=== PATIENT | male | born 1975 | race Caucasian/White ===

== ENCOUNTER 2016-11-02 03:04 | Inpatient (IN) | payer BC, OTHER ==
[2016-11-02] VITALS (8 sets, daily range): BP systolic 114–150; BP diastolic 69–92; PULSE 78–92; TEMP 36.4–37.2; O2SAT 96–98; Ht 182.9 cm; Wt 119.5 kg
[~2016-11-02] VITALS: Ht 182.9 cm; Wt 119.5 kg
[2016-11-02] MEDS ORDERED: GI COCKTAIL PO STA (03:17)
[2016-11-02] MEDS ORDERED: ASPIRIN 324 MG CHEW PO STA (03:17)
[2016-11-02] MEDS ORDERED: ALUMINUM/MAGNESIUM SUSP 30 ML UDC ONE (03:30)
[2016-11-02] MEDS ORDERED: NITROGLYCERIN 0.4 MG SL PER TAB CHARGE SL PRN ×2 (03:30→05:15)
[2016-11-02] MEDS ORDERED: LIDOCAINE HCL 2% VISC SOLN 20 ML UDC ONE (03:30)
--- NOTE | 2016-11-02 03:32 | EMERGENCY ROOM VISIT NOTE ---
History Report prepared by Rik: Kyle Fermin Under the Supervision of: Dr. David Dennis M.D. First contact with patient: 03:08 Chief Complaint: CHEST PAIN Stated Complaint: CHEST PAINS History of Present Illness The patient is a 41 year old male who presents to the Emergency Room with complaints of that started a couple of months ago. He rates his pain as a 4/10 in severity. The patient describes his pain as a stabbing sensation or a pressure. He admits that during his chest pain episodes, he typically experiences shortness of breath. The patient states that the last couple of nights, he has been experiencing heartburn, which he denies ever experiencing in the past. He states that the chest pain returned tonight around 0100 after he woke up. The patient states that he checked his blood pressure following the chest pain, which showed 134/88. He admits that his mother and father had a heart attack four years ago, but denies any sibling heart problem history. The patient admits that his mother also had a history of strokes. 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 The patient admits that he has been under a lot of stress recently. He states that he had testing done on his heart when he was 39, but denies a stress test. The patient denies telling his doctor about his chest pains. He denies medication, nausea, vomiting , LOC, heart palpitations, symptoms worsening with movement, lower extremity edema, a history of blood clots, smoking, drinking, trauma, and injuries. Source of History: patient Onset: a couple of months ago Position: chest Symptom Intensity: 4/10 Quality: pressure, stabbing Timing: intermittent Associated Symptoms: + SOB, No LOC, No nausea, No vomiting Review of Systems See HPI for pertinent positives & negatives. A total of 10 systems reviewed and were otherwise negative. Past Medical & Surgical Medical Problems: (1) Hypertension Surgical Problems: (1) History of ear surgery (2) Hx of appendectomy Family History Diabetes mellitus FH: stroke FHx: cancer FHx: heart disease Hypertension Kidney disease Kidney stones Social History Smoking Status: Never Smoker Smokeless Tobacco Use: No Alcohol Use: occasionally Drug Use: none Marital Status: Housing Status: lives with significant other Occupation Status: employed Current/Historical Medications Scheduled Valsartan/Hctz (Diovan Hct 160MG/25MG), 1 TAB PO DAILY Allergies Coded Allergies: No Known Allergies (Verified , 05/02/02) Physical Exam Vital Signs Date Time Temp Pulse Resp B/P (MAP) Pulse Ox O2 Delivery O2 Flow Rate FiO2 11/02/16 04:35 77 14 96 11/02/16 04:30 129/73 11/02/16 04:05 73 13 96 11/02/16 04:00 125/69 11/02/16 03:52 86 21 95 11/02/16 03:50 82 15 125/74 95 Room Air 11/02/16 03:32 76 15 114/80 96 Room Air 11/02/16 03:15 96 Room Air 11/02/16 03:14 88 11/02/16 03:14 96 Room Air 11/02/16 03:09 37.0 93 18 149/99 95 Room Air Physical Exam GENERAL: Anxious appearing in little distress. HEENT: No acute trauma, normocephalic atraumatic, mucous membranes moist, no nasal congestion, no scleral icterus. NECK: No stridor, no adenopathy, no meningismus, trachea is midline. LUNGS: No dyspnea. Clear to auscultation and equal bilaterally. No wheeze, no rhonchi. HEART: Regular rate and rhythm. No murmurs, rubs, gallops appreciated. ABDOMEN: Soft, nontender, bowel sounds positive, no masses appreciated, no peritonitis. BACK: No midline tenderness, no CVA tenderness EXTREMITIES: Normal motion all extremities, no cyanosis, no edema. NEUROLOGIC: Alert and oriented, no acute motor or sensory deficits, no focal weakness, cranial nerves grossly intact. SKIN: No rash, no jaundice, no diaphoresis. Medical Decision & Procedures ER Provider Diagnostic Interpretation: X ray results are stated below per my interpretation: Chest: 1 view: No infiltrate, no effusion, normal cardiac border. Laboratory Results 11/02/16 03:20 Red Blood Count 5.31, Mean Corpuscular Volume 82.1, Mean Corpuscular Hemoglobin 28.2, Mean Corpuscular Hemoglobin Concent 34.4, Mean Platelet Volume 9.4, Neutrophils (%) (Auto) 57.4, Lymphocytes (%) (Auto) 28.9, Monocytes (%) (Auto) 11.1, Eosinophils (%) (Auto) 1.7, Basophils (%) (Auto) 0.6, Neutrophils # (Auto ) 3.99, Lymphocytes # (Auto) 2.01, Monocytes # (Auto) 0.77, Eosinophils # (Auto ) 0.12, Basophils # (Auto) 0.04 11/02/16 03:20 Test 11/02/16 03:20 White Blood Count 6.95 K/uL (4.8-10.8) Red Blood Count 5.31 M/uL (4.7-6.1) Hemoglobin 15.0 g/dL (14.0-18.0) Hematocrit 43.6 % (42-52) Mean Corpuscular Volume 82.1 fL (80-100) Mean Corpuscular Hemoglobin 28.2 pg (25-34) Mean Corpuscular Hemoglobin Concent 34.4 g/dl (32-36) Platelet Count 230 K/uL (130-400) Mean Platelet Volume 9.4 fL (7.4-10.4) Neutrophils (%) (Auto) 57.4 % Lymphocytes (%) (Auto) 28.9 % Monocytes (%) (Auto) 11.1 % Eosinophils (%) (Auto) 1.7 % Basophils (%) (Auto) 0.6 % Neutrophils # (Auto) 3.99 K/uL (1.4-6.5) Lymphocytes # (Auto) 2.01 K/uL (1.2-3.4) Monocytes # (Auto) 0.77 K/uL (0.11-0.59) Eosinophils # (Auto) 0.12 K/uL (0-0.5) Basophils # (Auto) 0.04 K/uL (0-0.2) RDW Standard Deviation 39.6 fL (36.4-46.3) RDW Coefficient of Variation 13.2 % (11.5-14.5) Immature Granulocyte % (Auto) 0.3 % Immature Granulocyte # (Auto) 0.02 K/uL (0.00-0.02) D-Dimer 300 ug/L FEU (0-500) Anion Gap 8.0 mmol/L (3-11) Est Creatinine Clear Calc Drug Dose 106.1 ml/min Estimated GFR () 85.9 Estimated GFR (Non- 74.1 BUN/Creatinine Ratio 14.5 (10-20) Calcium Level 8.8 mg/dl (8.5-10.1) Magnesium Level 2.4 mg/dl (1.8-2.4) Total Bilirubin 0.5 mg/dl (0.2-1) Direct Bilirubin 0.1 mg/dl (0-0.2) Aspartate Amino Transf (AST/SGOT) 70 U/L (15-37) Alanine Aminotransferase (ALT/SGPT) 51 U/L (12-78) Alkaline Phosphatase 99 U/L (45-117) Total Creatine Kinase 2589 U/L (39-308) Creatine Kinase MB 1.9 ng/ml (0.5-3.6) Creatine Kinase MB Ratio 0.1 (0-3.0) Troponin I < 0.015 ng/ml (0-0.045) Total Protein 7.4 gm/dl (6.4-8.2) Albumin 3.8 gm/dl (3.4-5.0) Lipase 178 U/L (73-393) Thyroid Stimulating Hormone (TSH) 1.810 uIu/ml (0.300-4.500) Laboratory results as reviewed by me. Medications Administered Medications (Trade) Dose Ordered Sig/Juan Daniel Route Start Time Stop Time Status Last Admin Dose Admin Aspirin (Aspirin Chew) 324 mg NOW STAT PO 11/02/16 03:17 11/02/16 03:19 DC 11/02/16 03:33 324 MG Nitroglycerin (Nitrostat Tab) 0.4 mg PRN PRN SL 11/02/16 03:30 11/02/16 05:17 DC 11/02/16 03:34 0.4 MG Al Hydroxide/Mg Hydroxide (Maalox Susp) 30 ml STK-MED ONCE .ROUTE 11/02/16 03:30 11/02/16 03:31 DC 11/02/16 03:33 30 ML Lidocaine HCl (Viscous Lidocaine 2% Soln) 20 ml STK-MED ONCE .ROUTE 11/02/16 03:30 11/02/16 03:31 DC 11/02/16 03:34 20 ML Sodium Chloride 1,000 ml @ 999 mls/hr Q1H1M STAT IV 11/02/16 04:22 11/02/16 05:18 DC 11/02/16 04:36 999 MLS/HR Potassium Chloride (Klor-Con M10) 50 meq NOW STAT PO 11/02/16 04:30 11/02/16 04:43 DC 11/02/16 05:03 50 MEQ ECG Indication: chest pain Rate (beats per minute): 89 Rhythm: normal sinus Findings: no acute ischemic change, no ectopy ED Course 0310: The patient was evaluated in room A02. A complete history and physical exam was performed. 0317: Ordered GI Cocktail 24 ml PO, Aspiring 324 mg PO. 0330: Ordered Lidocaine HCl 20 ml IV, Maalox Susp 30 ml IV, Nitroglycerin 0.4 mg SL. 0348: I reevaluated the patient and he reports that he has resolution of chest pain. 0408: I reevaluated the patient and he has no further pain. 0418: I discussed the patients case with Dr. Grigsby [facility]. He understands the patients condition and agrees to accept the patient. The patient will be further evaluated. 0422: Sodium Chloride 1000 ml @ 999 mls/hr IV. Medical Decision Differential: Cardiac Ischemia (STEMI, NSTEMI, Unstable Angina, etc), Aortic Dissection, Arrhythmia, Pulmonary Embolism, Pneumonia, Pneumothorax, MSK, Infectious, Pericarditis/Myocarditis, Esophageal Rupture, Gastrointestinal, amongst other pathologies entertained. 41 yr old male with no CAD history though does have HTN and family CAD history arrives for evaluation of pressure like anterior chest pain. Comes and goes over last few months. Associated with recent increase in stress as well as noting some increased heart burn. No medications and non-exertional. EKG OK. CXR clear. Pain resolved with GI cocktail, ASA, SLNTG. Initial Trop negative. Of note his CK returns quite elevated. Notes no body aches nor standard Rhabdo symptoms. No real clear cause why he would be in Rhabdo at this time. Will bring in for hydration, and for further cardiac rule out. Medication Reconcilliation Current Medication List: was personally reviewed by me Blood Pressure Screening Patient's blood pressure: Elevated blood pressure Blood pressure disposition: Elevated BP felt to be situational Consults Time Called: [phone] Consulting Physician: Dr. Grigsby [facility] Returned Call: [phone] I discussed the patients case with Dr. Grigsby [facility]. He understands the patients condition and agrees to accept the patient. The patient will be further evaluated. Impression Primary Impression: Rhabdomyolysis Additional Impression: Substernal chest pain Scribe Attestation The scribe's documentation has been prepared under my direction and personally reviewed by me in its entirety. I confirm that the note above accurately reflects all work, treatment, procedures, and medical decision making performed by me. Departure Information Dispostion Being Evaluated By Hospitalist (Dr. Grigsby) Referrals Aimee Rey M.D. (PCP) Patient Instructions My [facility] Health Problem Qualifiers
[2016-11-02 03:36] LABS: BASO % 0.6 %; BASO ABS # 0.04 K/uL (0-0.2); COMPLETE YES; EOS % 1.7 %; HEMATOCRIT 43.6 % (42-52); IG% 0.3 %; LYMPH % 28.9 %; LYMPH ABS # 2.01 K/uL (1.2-3.4); MEAN CELL VOLUME 82.1 fL (80-100); MEAN CORPUSCULAR HEMOGLOBIN 28.2 pg (25-34); MEAN CORPUSCULAR HGB CONC 34.4 g/dl (32-36); MEAN PLATELET VOLUME 9.4 fL (7.4-10.4); MONO % 11.1 %; NEUT % 57.4 %; PLATELET COUNT 230 K/uL (130-400); RED BLOOD COUNT 5.31 M/uL (4.7-6.1); WHITE BLOOD COUNT 6.95 K/uL (4.8-10.8)
[2016-11-02] MEDS ORDERED: VALS160T60 PO (03:43)
[2016-11-02 03:58] LABS: BLOOD UREA NITROGEN 17 mg/dl (7-18); BUN/CREATININE RATIO 14.5 (10-20); CALCIUM 8.8 mg/dl (8.5-10.1); CARBON DIOXIDE 26 mmol/L (21-32); CHLORIDE 104 mmol/L (98-107); GLUCOSE 101 mg/dl (70-99); SODIUM 138 mmol/L (136-145)
[2016-11-02 04:13] LABS: CKMB/CK RATIO 0.1 (0-3.0)
[2016-11-02] MEDS ORDERED: SODIUM CHLORIDE 0.9% 1000ML 1,000 ML IV STA (04:22)
[2016-11-02] MEDS ORDERED: POTASSIUM CHLORIDE 10 MEQ TABCR PO STA (04:30)
[2016-11-02 04:46] LABS: ALT/SGPT 51 U/L (12-78); AST/SGOT 70 U/L (15-37); MAGNESIUM 2.4 mg/dl (1.8-2.4)
[2016-11-02 04:53] LABS: ALKALINE PHOSPHATASE 99 U/L (45-117)
[2016-11-02] MEDS ORDERED: PANTOprazole SOD 40 MG TAB PO ONE (05:03)
[2016-11-02] MEDS ORDERED: MoRPHine SULFATE 4 MG/ML 1 ML CARP\\VIAL IV PRN (05:15)
[2016-11-02] MEDS ORDERED: ACETAMINOPHEN 325 MG TAB PO PRN (05:15)
[2016-11-02] MEDS ORDERED: ONDANSETRON INJ 2 MG/ML 2 ML VIAL IV PRN (05:15)
[2016-11-02] MEDS ORDERED: LORAZEPAM 2 MG/ML 1 ML VIAL IV PRN (05:15)
[2016-11-02] MEDS ORDERED: TRAMADOL HCL 50 MG TAB PO PRN (05:15)
[2016-11-02] MEDS ORDERED: LORAZEPAM INJ 0.5 MG in SYRINGE 0.75 ML IV PRN (05:30)
[2016-11-02] MEDS: NSS + 20MEQ KCL 1000ML 1,000 ML IV SCH ×2 (06:09→10:57)
--- NOTE | 2016-11-02 06:48 | HISTORY & PHYSICAL EXAMINATION ---
DATE OF ADMISSION: 11/02/2016 PRIMARY CARE PHYSICIAN: Dr. Rey. CHIEF COMPLAINT: Chest pain. HISTORY OF PRESENT ILLNESS: History obtained from patient and records. Medical history significant for hypertension, One year history of intermittent substernal discomfort with shortness of breath symptoms, pressure/stabbing/burning-like in quality. Admits to overwhelming personal stressors. One to two episodes per month. Seen at the PCP's office. Symptoms attributed to blood press her ure elevation and/or possible stress adjustment reaction from personal stressors. Patient started on Losartan-HCTZ and citalopram. Patient stopped citalopram after one week of trial because he was losing sleep. 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 Last night, he had recurrence of stabbing sensation in the chest with shortness of breath and heartburn. Relieved by aspirin, nitroglycerin and GI cocktail given in the emergency room. The patient denies myalgias and dark urine. MEDICAL HISTORY: As above. SURGERIES: Ear surgery, appendectomy. HOME MEDICATIONS: Include losartan/HCTZ.. ALLERGIES: No known drug allergies. FAMILY HISTORY: Family history of heart disease. PERSONAL AND SOCIAL HISTORY: Nonsmoker, occasional alcoholic beverages, sanitation work REVIEW OF SYSTEMS: As per HPI, all other ROS negative. PHYSICAL EXAMINATION: VITAL SIGNS: Blood pressure was noted to be 135/69, pulse rate 76, respiratory rate 16, temperature 36.4, sats 95 on room air. GENERAL: Noted to be anxious, obese, no respiratory distress. Looks older than stated age. SKIN: Normal color. HEENT: Partial alopecia. [place] palpebral conjunctivae. Dry mucosa. NECK: No JVD. Supple. CHEST: Clear to auscultation. No anterior chest wall tenderness HEART: Regular rate and rhythm. ABDOMEN: Soft. EXTREMITIES: No edema, no tenderness. NEUROLOGIC: No gross focality. LABS: Hemoglobin was noted to be 15, hematocrit 42.30, white cell count 6.9, platelets 230. Sodium 138, potassium 3.0, chloride 104, CO2 of 26, BUN 70, creatinine 1.2, glucose 101. CK was 2589. Troponin normal. D-dimer normal. Chest x-ray, as per my interpretation, atelectasis, cardiomegaly. EKG, as per my interpretation, rate 90, normal sinus rhythm, LAD, no ischemia. ASSESSMENT: 1. Atypical chest pain Intermittent symptoms over the last year multifactorial : GERD stress/anxiety related rule out acute coronary syndrome. 2. Hypertension, stable. 3. 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 4. Hypokalemia, secondary to diuretic therapy. PLAN: Observation PCU. PPI Anxiolytic p.r.n. monitor CPK response to IV fluids Pharmacologic stress test if second set of troponin normal. Psych consult Re anxiety. Replace potassium. Hold home diuretics for now. DVT prophylaxis. Lovenox subQ. Full code. MTDD
[2016-11-02 07:08] LABS: PROTHROMBIN TIME (PATIENT) 10.7 SECONDS (9.0-12.0)
--- NOTE | 2016-11-02 07:23 | DIAGNOSTIC IMAGING REPORT ---
CHEST ONE VIEW PORTABLE CLINICAL HISTORY: 41 years-old Male presenting with Chest Pain, shortness of breath. TECHNIQUE: Portable upright AP view of the chest was obtained. COMPARISON: None. FINDINGS: Cardiomediastinal silhouette normal. Lungs and pleural spaces clear. Osseous structures normal. Upper abdomen normal. IMPRESSION: 1. No acute cardiopulmonary disease. Electronically signed by: Clay Solis M.D. 11/02/2016 7:22 AM Dictated Date/Time: 11/02/2016 7:21 AM
[2016-11-02 07:25] LABS: URINE APPEARANCE CLEAR (CLEAR); URINE BILIRUBIN NEG (NEG); URINE COLOR YELLOW; URINE NITRITE NEG (NEG); URINE SPECIFIC GRAVITY 1.017 (1.000-1.030); UROBILINOGEN NEG (NEG); ZZUR CULT IF INDIC CLEAN CATCH NO
[2016-11-02 07:31] LABS: MANUAL MICROSCOPIC REQUIRED? NO; REVIEW REQ? NO
[2016-11-02 07:55] LABS: BENZODIAZEPINE, URINE NEG (NEG); COCAINE,URINE NEG (NEG); PHENCYCLIDINE, URINE NEG (NEG)
[2016-11-02] MEDS ORDERED: ENOXAPARIN 40 MG/0.4 ML SYR SC SCH (08:00)
[2016-11-02] MEDS ORDERED: VALSARTAN 80 MG TAB PO SCH (09:00)
[2016-11-02 10:52] LABS: CHOLESTEROL 142 mg/dl (0-200); CHOLESTEROL/HDL RATIO 3.9; HDL CHOLESTEROL 36 mg/dl; LDL CHOLESTEROL CALCULATED 95 mg/dl; TRIGLYCERIDES 57 mg/dl (0-150); VERY LOW DENSITY LIPOPROT CALC 11 mg/dl
[2016-11-02] MEDS ORDERED: SERTRALINE HCL 50 MG TAB PO ONE (12:22)
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
--- NOTE | 2016-11-02 13:13 | Progress Note ---
Internal Med Progress Note Date of Service: Nov 02, 2016. Provider Documentation: SUBJECTIVE: Seen and examined at bedside. Planned for stress test today Denies any chest pain, SOB, dizziness, palpitations, cough, nausea, abd pain Offers no complaints Family at bedside. OBJECTIVE: Vital Signs-as noted below Physical Exam: General Appearance:Moderately built and nourished, no apparent distress Head: normocephalic, Atraumatic Eyes: normal inspection, EOMI, PERRL Neck: supple, Trachea midline Respiratory/Chest: Normal breath sounds, CTA Cardiovascular: S1, S2, No murmur Abdomen/GI:Soft, Non tender, Bowel sounds present Extremities/Musculoskelatal:normal inspection, no edema Neurologic/Psych:AAOX3, grossly no focal neurological deficits Skin: normal color, warm Lab data as noted below. 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 Continue IV fluids CK levels improving Renal function wnl DVT Px: Lovenox SQ Code Status: Full code Disposition: Plan to discharge home today Follow up with on 11/07/16 at 12:45pm Follow up with your Psychiatrist as advised Seek immediate medical attention if your symptoms reoccur or worsen Get blood test (BMP) and follow up with your doctor with results Vital Signs: Date Time Temp Pulse Resp B/P (MAP) Pulse Ox O2 Delivery O2 Flow Rate FiO2 11/02/16 16:00 97 Room Air 11/02/16 15:20 37.2 92 21 132/83 (99) 97 Room Air 11/02/16 12:00 96 Room Air 11/02/16 11:23 36.8 84 16 120/78 (92) 96 Room Air 11/02/16 08:00 98 Room Air 11/02/16 07:03 36.5 78 16 114/69 (84) 98 Room Air 11/02/16 05:25 36.4 89 17 150/92 98 Room Air 11/02/16 05:07 78 17 131/89 96 11/02/16 04:35 77 14 96 11/02/16 04:30 129/73 11/02/16 04:05 73 13 96 11/02/16 04:00 125/69 11/02/16 03:52 86 21 95 11/02/16 03:50 82 15 125/74 95 Room Air 11/02/16 03:32 76 15 114/80 96 Room Air 11/02/16 03:15 96 Room Air 11/02/16 03:14 88 11/02/16 03:14 96 Room Air 11/02/16 03:09 37.0 93 18 149/99 95 Room Air Lab Results: Results Past 24 Hours Test 11/02/16 03:20 11/02/16 06:29 11/02/16 07:00 11/02/16 09:49 Range/Units White Blood Count 6.95 4.8-10.8 K/uL Red Blood Count 5.31 4.7-6.1 M/uL Hemoglobin 15.0 14.0-18.0 g/dL Hematocrit 43.6 42-52 % Mean Corpuscular Volume 82.1 80-100 fL Mean Corpuscular Hemoglobin 28.2 25-34 pg Mean Corpuscular Hemoglobin Concent 34.4 32-36 g/dl Platelet Count 230 130-400 K/uL Mean Platelet Volume 9.4 7.4-10.4 fL Neutrophils (%) (Auto) 57.4 % Lymphocytes (%) (Auto) 28.9 % Monocytes (%) (Auto) 11.1 % Eosinophils (%) (Auto) 1.7 % Basophils (%) (Auto) 0.6 % Neutrophils # (Auto) 3.99 1.4-6.5 K/uL Lymphocytes # (Auto) 2.01 1.2-3.4 K/uL Monocytes # (Auto) 0.77 0.11-0.59 K/uL Eosinophils # (Auto) 0.12 0-0.5 K/uL Basophils # (Auto) 0.04 0-0.2 K/uL RDW Standard Deviation 39.6 36.4-46.3 fL RDW Coefficient of Variation 13.2 11.5-14.5 % Immature Granulocyte % (Auto) 0.3 % Immature Granulocyte # (Auto) 0.02 0.00-0.02 K/uL D-Dimer 300 0-500 ug/L FEU Sodium Level 138 136-145 mmol/L Potassium Level 3.0 3.4 3.5-5.1 mmol/L Chloride Level 104 98-107 mmol/L Carbon Dioxide Level 26 21-32 mmol/L Anion Gap 8.0 3-11 mmol/L Blood Urea Nitrogen 17 7-18 mg/dl Creatinine 1.20 0.60-1.40 mg/dl Est Creatinine Clear Calc Drug Dose 106.1 ml/min Estimated GFR () 85.9 Estimated GFR (Non- 74.1 BUN/Creatinine Ratio 14.5 10-20 Random Glucose 101 70-99 mg/dl Calcium Level 8.8 8.5-10.1 mg/dl Magnesium Level 2.4 1.8-2.4 mg/dl Total Bilirubin 0.5 0.2-1 mg/dl Direct Bilirubin 0.1 0-0.2 mg/dl Aspartate Amino Transf (AST/SGOT) 70 15-37 U/L Alanine Aminotransferase (ALT/SGPT) 51 12-78 U/L Alkaline Phosphatase 99 45-117 U/L Total Creatine Kinase 2589 1783 39-308 U/L Creatine Kinase MB 1.9 0.5-3.6 ng/ml Creatine Kinase MB Ratio 0.1 0-3.0 Troponin I < 0.015 < 0.015 0-0.045 ng/ml Total Protein 7.4 6.4-8.2 gm/dl Albumin 3.8 3.4-5.0 gm/dl Lipase 178 73-393 U/L Thyroid Stimulating Hormone (TSH) 1.810 0.300-4.500 uIu/ml Prothrombin Time 10.7 9.0-12.0 SECONDS Prothromb Time International Ratio 1.0 0.9-1.1 Urine Color YELLOW Urine Appearance CLEAR CLEAR Urine pH 5.0 4.5-7.5 Urine Specific [place] 1.017 1.000-1.030 Urine Protein NEG NEG Urine Glucose (UA) NEG NEG Urine Ketones NEG NEG Urine Occult Blood NEG NEG Urine Nitrite NEG NEG Urine Bilirubin NEG NEG Urine Urobilinogen NEG NEG Urine Leukocyte Esterase NEG NEG Urine Opiates Screen NEG NEG Urine Methadone, Qualitative NEG NEG Urine Barbiturates NEG NEG Urine Phencyclidine (PCP) Level NEG NEG Ur Amphetamine/Methamphetamine NEG NEG MDMA (Ecstasy) Screen NEG NEG Urine Benzodiazepines Screen NEG NEG Urine Cocaine Metabolite NEG NEG Urine Marijuana (THC) NEG NEG Triglycerides Level 57 0-150 mg/dl Cholesterol Level 142 0-200 mg/dl HDL Cholesterol 36 mg/dl LDL Cholesterol, Calculated 95 mg/dl VLDL Cholesterol, Calculated 11 mg/dl Cholesterol/HDL Ratio 3.9
[2016-11-02] MEDS ORDERED: POTASSIUM CHLORIDE 10 MEQ TABCR PO ONE (13:30)
--- NOTE | 2016-11-02 15:47 | EXERCISE STRESS ECHO ---
*NOTICE TO RECEIVING DEMOCRAT AGENCY This information is strictly Confidential and protected under [place] law. [place] law prohibits you from making any further disclosure of this information unless further disclosure is expressly permitted by the written consent of the person to whom it pertains or is authorized by law. A general authorization for the release of medical or other information is not sufficient for this purpose. Hospital accepts no responsibility if the information is made available to any other person, INCLUDING THE PATIENT. Interpretation Summary * Name: LUAN HUNG Study Date: 11/02/2016 01:41 PM BP: 134/83 mmHg * Patient Location: C.2T\S\S240\S\1 HR: 88 * : 1975 (M/d/yyyy) Gender: Male Height: 72 in * Age: 41 yrs Ethnicity: ID Weight: 263 lb * Ordering Physician: José Luis Decker * Referring Physician: Self, Referred * Performed By: Dot Mcbride RDCS * * Reason For Study: CHEST PAIN * BSA: 2.4 m2 * -- Conclusions -- * STRESS STUDY: * Normal exercise stress echocardiogram. * No echocardiographic or ECG evidence of myocardial ischemia having achieved heart rate adequate for diagnostic purposes. * A moderately high workload was achieved. * The heart rate response to exercise was normal. * The blood pressure response to exercise was normal. * RESTING STUDY: * There is mild concentric left ventricular hypertrophy. * The LV Ejection Fraction = 55-60%. * Grade I diastolic dysfunction, (abnormal relaxation pattern). * There is no significant valvular disease. Procedure Details * ECHOEX, CPT #04187 * A contrast injection of Definity was performed to improve assessment of LV function. * Contrast was injected into an intravenous site in the right arm. * One vial of Definity ultrasound contrast was diluted in normal saline to a total volume of 10 ml. A total of '4' ml of solution was administered during imaging. * Lot # [id number] of Definity utilized for procedure. * Expiration date NOV 04. * The attending nurse who injected the contrast agent was MICHAEL DELGADO RN. * TST, CPT #65621 * ECHO DOPPLER, CPT #96970 * ECHO COLOR FLOW, CPT #18857 Left Ventricle * The left ventricle is normal in size. * There is no thrombus. * There is mild concentric left ventricular hypertrophy. * Left ventricular systolic function is normal. * Ejection Fraction = 55-60%. * Resting wall motion: Normal. Stress wall motion: Appropriate increase in Left ventricular systolic function and decrease in cavity size. No stress induced segmental wall motion abnormalities. Right Ventricle * The right ventricle is normal in size and function. Atria * The left atrial size is normal. * Right atrial size is normal. * No ASD detected; PFO is not assessed. Mitral Valve * The mitral valve is normal in structure and function. Tricuspid Valve * The tricuspid valve is not well visualized, but is grossly normal. * There is trace tricuspid regurgitation. Aortic Valve * The aortic valve is normal in structure and function. Pulmonic Valve * The pulmonic valve is not well visualized. Great Vessels * The aortic root is normal size. Pericardium * There is no pericardial effusion. Stress Parameters * The baseline ECG revealed SR at 88 bpm with incomplete RBBB. * The stress ECG response was normal * No arrhythmia were noted with stress. * The stress portion of this study was personally supervised by the undersigned interpreting physician. Left Ventricular Diastolic Function * Grade I diastolic dysfunction, (abnormal relaxation pattern). MMode 2D Measurements and Calculations IVSd 1.3 cm IVSs 1.7 cm LVIDd 4.1 cm LVIDs 3.0 cm LVPWd 1.7 cm LVPWs 1.9 cm IVS/LVPW 0.79 FS 26.9 % EDV(Teich) 74.3 ml ESV(Teich) 35.0 ml EF(Teich) 53.0 % EDV(cubed) 69.1 ml ESV(cubed) 27.0 ml EF(cubed) 61.0 % % IVS thick 25.4 % % LVPW thick 12.8 % LV mass(C)d 244.5 grams LV mass(C)dI 102.1 grams/m\S\2 LV mass(C)s 215.1 grams LV mass(C)sI 89.9 grams/m\S\2 SV(Teich) 39.4 ml SI(Teich) 16.5 ml/m\S\2 SV(cubed) 42.1 ml SI(cubed) 17.6 ml/m\S\2 Ao root diam 3.4 cm Ao root area 9.0 cm\S\2 LA dimension 2.9 cm LA/Ao 0.85 LVAd ap4 27.3 cm\S\2 LVLd ap4 8.0 cm EDV(MOD-sp4) 72.9 ml EDV(sp4-el) 78.8 ml LVAs ap4 16.6 cm\S\2 LVLs ap4 6.8 cm ESV(MOD-sp4) 33.6 ml ESV(sp4-el) 34.5 ml EF(MOD-sp4) 53.9 % EF(sp4-el) 56.2 % LVAd ap2 23.6 cm\S\2 LVLd ap2 8.0 cm EDV(MOD-sp2) 58.2 ml EDV(sp2-el) 59.1 ml LVAs ap2 14.3 cm\S\2 LVLs ap2 6.6 cm ESV(MOD-sp2) 28.9 ml ESV(sp2-el) 26.5 ml EF(MOD-sp2) 50.3 % EF(sp2-el) 55.2 % LVLd %diff 0.26 % EDV(MOD-bp) 64.9 ml LVLs %diff -3.69 % ESV(MOD-bp) 31.0 ml EF(MOD-bp) 52.3 % SV(MOD-sp4) 39.3 ml SI(MOD-sp4) 16.4 ml/m\S\2 SV(MOD-sp2) 29.3 ml SI(MOD-sp2) 12.2 ml/m\S\2 SV(MOD-bp) 34.0 ml SI(MOD-bp) 14.2 ml/m\S\2 SV(sp4-el) 44.2 ml SI(sp4-el) 18.5 ml/m\S\2 SV(sp2-el) 32.6 ml SI(sp2-el) 13.6 ml/m\S\2 Doppler Measurements and Calculations MV E max gage 77.6 cm/sec MV A max gage 68.4 cm/sec MV E/A 1.1 MV dec time 0.20 sec Ao V2 max 135.7 cm/sec Ao max PG 7.4 mmHg Ao max PG (full) 3.0 mmHg LV V1 max PG 4.4 mmHg LV V1 max 104.3 cm/sec
[2016-11-02] MEDS ORDERED: PRT40 PO (16:46)
[2016-11-02] MEDS ORDERED: ZLF50 PO (16:46)
[2016-11-02] MEDS ORDERED: POTA10CA28 PO (16:49)
--- NOTE | 2016-11-02 16:55 | Discharge Summary ---
Discharge Summary Date of Service Nov 02, 2016. Discharge Summary Admission Date: Nov 02, 2016 at 04:40 Discharge Date: Nov 02, 2016 Discharge Disposition: Home Principal Diagnosis: Atypical chest pain, Anxiety disorder Procedures: CXR: No acute cardiopulmonary disease. Stress test: * STRESS STUDY: * Normal exercise stress echocardiogram. * No echocardiographic or ECG evidence of myocardial ischemia having achieved heart rate adequate for diagnostic purposes. * A moderately high workload was achieved. * The heart rate response to exercise was normal. * The blood pressure response to exercise was normal. * RESTING STUDY: * There is mild concentric left ventricular hypertrophy. * The LV Ejection Fraction = 55-60%. * Grade I diastolic dysfunction, (abnormal relaxation pattern). * There is no significant valvular disease. Consultations: Cardiology, Psychiatry Pending Studies/Follow-Up: Follow up with on 11/07/16 at 12:45pm Follow up with your Psychiatrist as advised Seek immediate medical attention if your symptoms reoccur or worsen Get blood test (BMP) and follow up with your doctor with results Medication Reconciliation New Medications: Pantoprazole (Pantoprazole Sodium) 40 Mg Tab 40 MG PO QAM for 30 Days, #30 TAB Potassium Chloride (Micro-K Ext Rel) 10 Meq Capcr 20 MEQ PO DAILY for 7 Days, #14 EA Sertraline HCl (Sertraline HCl) 50 Mg Tab 50 MG PO QAM for 30 Days, #30 TAB 1 Refill Continued Medications: Valsartan/Hctz (Diovan Hct 160MG/25MG) 1 Tab Tab 1 TAB PO DAILY, TAB Admission Information HPI (per Admitting provider): CHIEF COMPLAINT: Chest pain. HISTORY OF PRESENT ILLNESS: History obtained from patient and records. Medical history significant for hypertension, One year history of intermittent substernal discomfort with shortness of breath symptoms, pressure/stabbing/burning-like in quality. Admits to overwhelming personal stressors. One to two episodes per month. Seen at the PCP's office. Symptoms attributed to blood press her ure elevation and/or possible stress adjustment reaction from personal stressors. Patient started on Losartan-HCTZ and citalopram. Patient stopped citalopram after one week of trial because he was losing sleep. 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 Last night, he had recurrence of stabbing sensation in the chest with shortness of breath and heartburn. Relieved by aspirin, nitroglycerin and GI cocktail given in the emergency room. The patient denies myalgias and dark urine. Physical Exam (per Admitting): PHYSICAL EXAMINATION: VITAL SIGNS: Blood pressure was noted to be 135/69, pulse rate 76, respiratory rate 16, temperature 36.4, sats 95 on room air. GENERAL: Noted to be anxious, obese, no respiratory distress. Looks older than stated age. SKIN: Normal color. HEENT: Partial alopecia. [place] palpebral conjunctivae. Dry mucosa. NECK: No JVD. Supple. CHEST: Clear to auscultation. No anterior chest wall tenderness HEART: Regular rate and rhythm. ABDOMEN: Soft. EXTREMITIES: No edema, no tenderness. NEUROLOGIC: No gross focality. 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 Discharge Instructions Discharge Instructions Date of Service Nov 02, 2016. Admission Reason for Admission: Rhabdomyolysis, Substernal Chest Pain Discharge Discharge Diagnosis / Problem: Atypical chest pain Discharge Goals Goal(s): Decrease discomfort, Improve function Activity Recommendations Activity Limitations: resume your previous activity Exercise/Sports Limitations: as tolerated . Instructions / Follow-Up Instructions / Follow-Up Follow up with on 11/07/16 at 12:45pm Follow up with your Psychiatrist as advised Seek immediate medical attention if your symptoms reoccur or worsen Get blood test (BMP) and follow up with your doctor with results Current Hospital Diet Patient's current hospital diet: Regular Diet Discharge Diet Recommended Diet: Regular Diet Pending Studies Studies pending at discharge: no Laboratory Results Lipid Panel Test 11/02/16 09:49 Range/Units Triglycerides Level 57 0-150 mg/dl Cholesterol Level 142 0-200 mg/dl HDL Cholesterol 36 mg/dl Cholesterol/HDL Ratio 3.9 LDL Cholesterol, Calculated 95 mg/dl Medical Emergencies . Who to Call and When: Medical Emergencies: If at any time you feel your situation is an emergency, please call 911 immediately. . Non-Emergent Contact Non-Emergency issues call your: Primary Care Provider Call Non-Emergent contact if: you have a fever, your pain is not controlled, your pain is worsening, your pain is unusual for you, you have any medication questions If your symptoms reoccur or worsen . "Provider Documentation" section prepared by Senthil James. . VTE Core Measure Inpt VTE Proph given/why not?: Enoxaparin (Lovenox)SQ
[2016-11-03] MEDS ORDERED: ASPIRIN 325 MG ECTAB PO SCH (09:00)
[2016-11-03] MEDS ORDERED: PANTOprazole SOD 40 MG TAB PO SCH (09:00)
[2016-11-03] MEDS ORDERED: POTASSIUM CHLORIDE 20 MEQ TABCR PO SCH (09:00)
[2016-11-03] MEDS ORDERED: SERTRALINE HCL 50 MG TAB PO SCH (09:00)
== END 2016-11-02 17:35 | disposition home or self-care (01) | DRG 313 ==
LOC: C.EDB 03:05 → C.2T 04:40 → ENRESERV 04:53
PROVIDERS: ADMIT Internal Medicine; ATTEND Internal Medicine
DX: R07.89 Other chest pain (principal); M62.82 Rhabdomyolysis; E87.6 Hypokalemia; F41.9 Anxiety disorder, unspecified; K21.9 Gastro-esophageal reflux disease without esophagitis; I10 Essential (primary) hypertension; T50.2X5A Adverse effect of carbonic-anhydrase inhibitors, benzothiadiazides and other diuretics, initial encounter; Z82.49 Family history of ischemic heart disease and other diseases of the circulatory system; Z82.3 Family history of stroke; Z81.1 Family history of alcohol abuse and dependence; Z81.8 Family history of other mental and behavioral disorders